=== PATIENT | male | born 1955 | race Caucasian/White ===

== ENCOUNTER 2017-05-27 22:52 | Emergency (ER) | payer OTHER ==
[~2017-05-27] VITALS: Ht 175.3 cm; Wt 81.5 kg
[~2017-05-27 22:52] MED LIST: MECL12.5 PO; NO HOME MEDS
[2017-05-27] MEDS ORDERED: benzonatate 100mg capsule PO ONE (23:30)
[2017-05-27 23:42] VITALS: BP 112/65
== END 2017-05-27 23:44 | disposition home or self-care (01) ==
LOC: ER 22:52
DX: R05 Cough (principal); F17.200 Nicotine dependence, unspecified, uncomplicated; F15.10 Other stimulant abuse, uncomplicated; Z56.0 Unemployment, unspecified; Z60.2 Problems related to living alone; Z86.19 Personal history of other infectious and parasitic diseases; Z79.899 Other long term (current) drug therapy
CPT/HCPCS: 71046; 99284

== ENCOUNTER 2017-07-24 02:18 | Emergency (ER) | payer OTHER | END 2017-07-24 04:15 | disposition left against medical advice (07) | LOC: ER 02:19 | DX: R06.02 Shortness of breath (principal); Z53.21 Procedure and treatment not carried out due to patient leaving prior to being seen by health care provider ==

== ENCOUNTER 2017-12-16 23:48 | Emergency (ER) | payer OTHER ==
[~2017-12-16] VITALS: Ht 175.3 cm; Wt 68.1 kg
[2017-12-16 23:52] VITALS: BP 121/68
== END 2017-12-17 00:30 | disposition home or self-care (01) ==
LOC: ER 23:48
DX: Z00.00 Encounter for general adult medical examination without abnormal findings (principal); R53.1 Weakness; F15.90 Other stimulant use, unspecified, uncomplicated; Z59.0 Homelessness; Z86.19 Personal history of other infectious and parasitic diseases; Z56.0 Unemployment, unspecified; Z60.2 Problems related to living alone; Z98.890 Other specified postprocedural states; Z79.899 Other long term (current) drug therapy
CPT/HCPCS: 99281

== ENCOUNTER 2017-12-24 09:05 | Emergency (ER) | payer OTHER ==
[~2017-12-24] VITALS: Ht 175.3 cm; Wt 67.0 kg
[2017-12-24 09:10] VITALS: BP 123/76
== END 2017-12-24 09:45 | disposition home or self-care (01) ==
LOC: ER 09:06
DX: T73.0XXA Starvation, initial encounter (principal); F15.90 Other stimulant use, unspecified, uncomplicated; F17.210 Nicotine dependence, cigarettes, uncomplicated; Z98.890 Other specified postprocedural states; Z56.0 Unemployment, unspecified; Z59.0 Homelessness; Y92.9 Unspecified place or not applicable
CPT/HCPCS: 82948; 99282

== ENCOUNTER 2018-04-04 14:56 | Emergency (ER) | payer OTHER ==
[~2018-04-04] VITALS: Ht 175.3 cm; Wt 74.0 kg
[2018-04-04 15:49] LABS: BASOPHILS % (AUTO) 0.3 % (0-1); EOSINOPHILS % (AUTO) 0 % (0-6); HEMATOCRIT 54.6 % (42.0-52.0); LYMPHOCYTES # (AUTO) 1.3 X10'3 (1.1-4.8); LYMPHOCYTES % (AUTO) 22.6 % (21-51); MEAN CORPUSCULAR HEMOGLOBIN 30.7 PG (27.0-31.0); MEAN CORPUSCULAR HGB CONC 33.3 % (33.0-36.5); MEAN CORPUSCULAR VOLUME 92.4 FL (78-98); MEAN PLATELET VOLUME 10.1 FL (7.4-10.4); MONOCYTES # (AUTO) 0.8 X10'3 (0-0.9); MONOCYTES % (AUTO) 14.2 % (2-12); NEUTROPHILS # (AUTO) 3.5 X10'3 (1.8-7.7); NEUTROPHILS % (AUTO) 62.9 % (42-75); PLATELET COUNT 145 X10'3 (140-440); RED BLOOD COUNT 5.91 X10'6 (4.70-6.10); RED CELL DISTRIBUTION WIDTH 13.3 % (11.5-14.5); WHITE BLOOD COUNT 5.6 X10'3 (4.5-11.0)
[2018-04-04 15:55] LABS: HEMOGLOBIN 18.2 g/dl (14.0-17.9)
[2018-04-04 16:03] LABS: ALANINE AMINOTRANSFERASE 62 U/L (12-78); ALBUMIN 3.6 G/DL (3.4-5.0); ALBUMIN/GLOBULIN RATIO 0.7 (1.1-1.5); ALKALINE PHOSPHATASE 75 IU/L (46-116); ANION GAP 13 (8-16); ASPARTATE AMINO TRANSFERASE 48 U/L (10-37); BILIRUBIN,TOTAL 0.7 MG/DL (0.1-1.0); BLOOD UREA NITROGEN 21 MG/DL (7-18); BUN/CREATININE RATIO 24.1 (5.4-32.0); CHLORIDE 98 MMOL/L (99-107); CREATININE 0.87 MG/DL (0.60-1.10); GLUCOSE 124 MG/DL (70-104); SODIUM 136 MMOL/L (135-145); TOTAL CARBON DIOXIDE 25.1 MMOL/L (24-32); TOTAL PROTEIN 8.5 G/DL (6.4-8.2); eGFR 88 ML/MIN
[2018-04-04] MEDS ORDERED: normal saline 1000ML IV soln IVB ONE (16:10)
[2018-04-04 16:18] LABS: PROTHROMBIN TIME 10.2 SECONDS (9.0-12.0)
[2018-04-04] MEDS ORDERED: diphenhydrAMINE 50 mg/ml inj IV ONE (16:30)
[2018-04-04] MEDS ORDERED: metoclopramide 5 mg/ml inj IV ONE (16:30)
[2018-04-04 17:04] LABS: CLARITY,URINE CLEAR (Clear); COLOR,URINE YELLOW (Yellow); GLUCOSE, URINE NEGATIVE (Neg); KETONES,URINE 15 mg/dl (Neg); LEUKOCYTE ESTERASE ,URINE NEGATIVE (Neg); NITRITES, URINE NEGATIVE (Neg); OCCULT BLOOD,URINE NEGATIVE (Neg); PH,URINE 5.5 (4.8-8.0); PROTEIN,URINE TRACE mg/dl (Neg); UROBILINOGEN,URINE 0.2 E.U/dL (0.2-1.0)
[2018-04-04 17:09] LABS: UA COLLECTION TYPE URINAL
[2018-04-04 17:11] LABS: AMORPHOUS URATES 1+; BACTERIA,URINE NONE SEEN /HPF (Neg); MUCUS STRANDS FEW /LPF (Neg); RBC,URINE NONE SEEN /HPF (0-2); SQUAMOUS EPITHELIAL CELL,UR FEW /LPF (FEW); WBC,URINE NONE SEEN /HPF (0-4)
[2018-04-04] MEDS ORDERED: AZIT-63 PO (18:42)
[2018-04-04 18:55] VITALS: BP 121/65
== END 2018-04-04 18:56 | disposition home or self-care (01) ==
LOC: ER 14:57
DX: R10.9 Unspecified abdominal pain (principal); E86.0 Dehydration; R11.0 Nausea; F17.210 Nicotine dependence, cigarettes, uncomplicated; F15.90 Other stimulant use, unspecified, uncomplicated; Z79.2 Long term (current) use of antibiotics; Z79.899 Other long term (current) drug therapy; Z60.2 Problems related to living alone; Z56.0 Unemployment, unspecified
CPT/HCPCS: 36415; 74176; 80053; 81001; 85025; 85610; 96361; 96374; 96375; 99284; J1200; J2765; J7030

== ENCOUNTER 2018-12-18 15:48 | Emergency (ER) | payer OTHER ==
[~2018-12-18] VITALS: Ht 175.3 cm; Wt 70.0 kg
[2018-12-18 16:22] VITALS: BP 117/70
[2018-12-18] MEDS ORDERED: AMOX-419 PO (17:03)
== END 2018-12-18 17:10 | disposition home or self-care (01) ==
LOC: ER 15:49
DX: S31.25XA Open bite of penis, initial encounter (principal); F15.90 Other stimulant use, unspecified, uncomplicated; Z98.890 Other specified postprocedural states; Z56.0 Unemployment, unspecified; W54.0XXA Bitten by dog, initial encounter; Y93.89 Activity, other specified; Y92.89 Other specified places as the place of occurrence of the external cause; Y99.9 Unspecified external cause status
CPT/HCPCS: 99283